=== PATIENT | female | born 1985 | race Caucasian/White ===

== ENCOUNTER 2022-09-04 15:25 | Emergency (ER) | payer MEDICAID ==
[~2022-09-04] VITALS: Ht 165.1 cm; Wt 59.8 kg
[2022-09-04] MEDS ORDERED: HYDROcodone-ACET 5/325MG TAB PO ONE (16:15)
[2022-09-04 16:20] VITALS: BP 122/76; PULSE 76; RESP 17; O2SAT 98
[2022-09-04] MEDS ORDERED: IBU600T PO (16:23)
[2022-09-04] MEDS ORDERED: IBUPROFEN 600 MG TAB PO ONE (16:30)
[2022-09-04 16:31] VITALS: TEMP 98.8
== END 2022-09-04 16:47 | disposition home or self-care (01) ==
LOC: ER 15:25
DX: S93.691A Other sprain of right foot, initial encounter (principal); Z88.2 Allergy status to sulfonamides; W22.8XXA Striking against or struck by other objects, initial encounter; Y93.89 Activity, other specified; Y92.512 Supermarket, store or market as the place of occurrence of the external cause; Y99.8 Other external cause status
CPT/HCPCS: 73630